=== PATIENT | female | born 1945 | race Caucasian/White ===

== ENCOUNTER → 2016-08-08 | Outpatient (CLI) | payer MEDICARE, BC | PROVIDERS: ATTEND Nurse Practitioner Family | DX: F34.1 Dysthymic disorder (principal); F41.0 Panic disorder [episodic paroxysmal anxiety] | CPT/HCPCS: 99214 ==

== ENCOUNTER 2019-05-15 10:46 | Day surgery (SDC) | payer MEDICARE, BC ==
[2019-05-15] MEDS ORDERED: Betamethasone Acetate/Betamethasone Sod Phosphate 30 MG/5 ML MDV EPIDUR ONE (12:00)
[2019-05-15] MEDS ORDERED: Lidocaine 2% 5 ML SDV INJECT ONE (12:00)
[2019-05-15] MEDS ORDERED: Ropivacaine 0.5% 5 MG/ML 30 ML SDV INJECT ONE (12:00)
[2019-05-15] MEDS ORDERED: diphenhydrAMINE 50 MG/ML SDV ONE (13:11)
[2019-05-15] MEDS ORDERED: diphenhydrAMINE 50 MG/ML SDV IVPUSH ONE (13:13)
[2019-05-15] MEDS ORDERED: Hydrocortisone Sodium Succinate 250 MG/2 ML SDV IV STA (13:13)
[2019-05-15] MEDS ORDERED: 50% Dextrose in Water 50 ML Syringe IVPUSH PRN (13:14)
[2019-05-15] MEDS ORDERED: Atropine 0.1 MG/ML 10 ML Syringe IVPUSH PRN ×2 (13:14)
[2019-05-15] MEDS ORDERED: EPINEPHrine 1:10,000 1 MG/10 ML Syringe IVPUSH PRN (13:14)
[2019-05-15] MEDS ORDERED: Albuterol 0.083% 2.5 MG/3 ML Neb Soln NEB PRN (13:14)
[2019-05-15] MEDS ORDERED: Naloxone 0.4 MG/ML Syringe IVPUSH PRN (13:14)
--- NOTE | 2019-05-15 13:21 | PCM.SN ---
- Free Text/Narrative Note: Called to PACU by RN for patient with difficultly swallowing. Patient has a reported anaphylactic reaction to contrast media. The patient received some form of contrast dye inadvertently during L4-L5-S1 Bilateral Facet injection. The patient reported increasing difficultly swallowing and was taken to PACU. Dr Tay is currently in another procedure and I was asked to evaluate the patient. Patient received Benedryl 5mg IV during the procedure. After consulting with Dr Gauthier Benadryl 25mg IV x1 and Hydrocortisone 100mg IV x 1 has been ordered. Will discuss with Dr Tay and let her know our interventions.
--- NOTE | 2019-05-15 20:05 | OR ---
SURGEON: Tania Tay D.O. DATE OF PROCEDURE: 05/15/2019 PRIMARY SURGEON: Tania Tay D.O. OPERATING ROOM STAFF PRESENT: 1. Tressa Gay RN. 2. Sanket Mathur RN. 3. RT Artem. 4. Zane Villalta RN. WOUND CLASS: I. PREOPERATIVE DIAGNOSES: 1. Lumbar facet arthropathy L45,L5-S1 Bilateral 2. Lumbar degenerative disk disease. 3. Chronic low back pain. POSTOPERATIVE DIAGNOSES: same PROCEDURES PERFORMED: 1. Right L4-L5 facet joint injection. 2. Right L5-S1 facet joint injection. 3. Left L4-L5 facet joint injection. 4. Left L5-S1 facet joint injection. 5. Fluoroscopic guidance for needle placement. 6. Local with oral Valium for sedation. SCREENING QUESTIONS: The patient answered "No" to all the following questions: 1. Are you allergic to iodine, Betadine or latex? 2. Do you have a bleeding disorder? 3. Are you on anti-inflammatories or blood thinners? 4. Do you have any current local or systemic infections? DESCRIPTION OF PROCEDURE: The patient had the procedure thoroughly explained including risks, benefits and alternatives. Consent was signed in my clinic indicating understanding and willingness to proceed. The patient presented to [facility] and was escorted to the dressing room to disrobe and change into a hospital gown. Preoperative history and screening were performed by my nurse. Vital signs were taken and stable. The patient reported that Valium 10 milligrams was taken prior to the procedure. The patient was brought back to the procedure room and placed in the prone position on the procedure room table. A pillow was placed under the abdomen in order to flatten the lumbar lordosis. The back was prepped with ChloraPrep and sterilely draped. All personnel in the procedure room were dressed in appropriate attire including surgical scrubs, head and shoe covers. This was to ensure sterility while in the treatment room. During the time fluoroscopy was in use all personnel in the operating room wore lead caro with thyroid collars. Sterile technique was used during the procedure. Then the fluoroscope was positioned to provide a right oblique view for the right L4-5 facet injection. This was begun by anesthetizing the skin and soft tissues. The fluoroscope was positioned and a sterile 22-gauge 3.5 inch needle was placed at the"eye of the carline dog". Precise needle placement was confirmed by fluoroscopy. After negative aspiration, 0.5 cubic centimeters of celestone and local was injected without complications.The fluoroscope was then positioned to provide a right L4-5 facet joint ingection as above. Then fluoroscope was positioned then to provide a left L5-S1 facet injection. Contrast dye was observed in above procedure on fluroscopy. Patient is allergic to contrast and pharmacy must have placed wrong medication in syringe. Immediately IV was started. Patient VSS. 5mg benadryl was give IVP. No issues and procedure for the L5-S1 facet joints were then continued as above without issues. The procedure was well tolerated and vital signs were stable during and after the procedure. The staff escorted the patient to the recovery area PACU for observation. Incidental IV contrast dye noted. IV was started in the OR as the pharmacy mislabeled IV Isovue contrast dye for ropivacaine. I noticed that the ropivacaine was contrast under fluoroscopy and immediately started an IV as the patient is allergic to the IV contrast. 5 mg of IV Benadryl were given and the patient was brought to the recovery room to monitor. After a brief stay in the recovery room, she felt she developed some difficulty swallowing and an additional 25 mg of Benadryl was given and 100 mg of Solu-Medrol. She was monitored in the recovery room and discharged to step down when stable. She had full recovery and was discharged to home with instuctions to f/u in ER if any unusual swelling, pain or weakness. PREOPERATIVE PAIN: 6. POSTOPERATIVE PAIN: 1. HOGLCHR / MODL /[id number] SANDRINE
== END 2019-05-15 14:45 | disposition home or self-care (01) ==
LOC: MW.SDS 10:46
PROVIDERS: ATTEND Anesthesiology
DX: G89.29 Other chronic pain (principal); M47.817 Spondylosis without myelopathy or radiculopathy, lumbosacral region; M47.816 Spondylosis without myelopathy or radiculopathy, lumbar region; M51.36 Other intervertebral disc degeneration, lumbar region
CPT/HCPCS: 64493; 64494; J0702; J1200; J1720; J2795

== ENCOUNTER 2021-07-05 13:23 | Emergency (ER) | payer MEDICARE, BC ==
[2021-07-05] MEDS ORDERED: diphenhydrAMINE 50 MG/ML SDV IVPUSH ONE ×2 (13:42→14:24)
[2021-07-05 15:39] LABS: BLOOD UREA NITROGEN,BUN 24 mg/dL (7.0-18.0); CARBON DIOXIDE,CO2 31.1 mmol/L (21.0-32.0); CHLORIDE,CL 100 mmol/L (98-107); GLUCOSE RANDOM 112 mg/dL (74-106); POTASSIUM,K 3.7 mmol/L (3.5-5.1); SODIUM,NA 137 mmol/L (136-145)
[2021-07-05] MEDS ORDERED: LORazepam 2 MG/ML SDV IVPUSH ONE (15:45)
== END 2021-07-05 17:41 | disposition home or self-care (01) ==
LOC: MW.ED 13:23
DX: G25.71 Drug induced akathisia (principal); I10 Essential (primary) hypertension; K21.9 Gastro-esophageal reflux disease without esophagitis; Z91.041 Radiographic dye allergy status; Z88.8 Allergy status to other drugs, medicaments and biological substances; Z88.1 Allergy status to other antibiotic agents; Z79.82 Long term (current) use of aspirin; Z79.899 Other long term (current) drug therapy
CPT/HCPCS: 36415; 80053; 83735; 85025; 96374; 96375; 96376; 99284; J1200; J2060

== ENCOUNTER 2021-07-07 13:29 | Emergency (ER) | payer MEDICARE, BC ==
[2021-07-07] MEDS ORDERED: Sodium Chloride 0.9% 2.5 ML Syringe FLUSH PRN (14:01)
[2021-07-07] MEDS ORDERED: Sodium Chloride 0.9% 10 ML Syringe FLUSH PRN (14:01)
[2021-07-07] MEDS ORDERED: LORazepam 2 MG/ML SDV IVPUSH ONE (14:03)
[2021-07-07 15:10] LABS: BLOOD UREA NITROGEN,BUN 23 mg/dL (7.0-18.0); CARBON DIOXIDE,CO2 30.9 mmol/L (21.0-32.0); CHLORIDE,CL 102 mmol/L (98-107); GLUCOSE RANDOM 93 mg/dL (74-106); POTASSIUM,K 3.6 mmol/L (3.5-5.1); SODIUM,NA 139 mmol/L (136-145)
[2021-07-07] MEDS ORDERED: LORazepam 1 MG Tab PO ONE (17:52)
== END 2021-07-07 18:32 | disposition home or self-care (01) ==
LOC: MW.ED 13:29
DX: F28 Other psychotic disorder not due to a substance or known physiological condition (principal); R45.1 Restlessness and agitation; M19.90 Unspecified osteoarthritis, unspecified site; K21.9 Gastro-esophageal reflux disease without esophagitis; F41.9 Anxiety disorder, unspecified; F32.A Depression, unspecified; E03.9 Hypothyroidism, unspecified; Z86.73 Personal history of transient ischemic attack (TIA), and cerebral infarction without residual deficits; Z88.2 Allergy status to sulfonamides; Z91.041 Radiographic dye allergy status; Z88.1 Allergy status to other antibiotic agents
CPT/HCPCS: 36415; 70450; 80053; 81001; 82550; 85025; 96374; 99284; A9270; J2060; 99283

== ENCOUNTER 2022-05-16 16:22 | Inpatient (IN) | payer MEDICARE, BC ==
[2022-05-16] MEDS ORDERED: Morphine 2 MG/ML SYRINGE ONE (16:37)
[2022-05-16] MEDS ORDERED: Morphine 2 MG/ML SYRINGE IVPUSH ONE ×2 (16:38→18:14)
[2022-05-16 17:10] LABS: CARBON DIOXIDE,CO2 28.9 mmol/L (21.0-32.0)
[2022-05-16 18:31] LABS: CORONAVIRUS COVID-19 NAA NEGATIVE (NEGATIVE); INFLUENZA A NAA NEGATIVE (NEGATIVE); INFLUENZA B NAA NEGATIVE (NEGATIVE)
[2022-05-16] MEDS: Melatonin 3 MG Tab PO PRN (23:31)
[2022-05-16] MEDS: Morphine 2 MG/ML SYRINGE IVPUSH PRN (23:32)
[2022-05-17] MEDS: Morphine 2 MG/ML SYRINGE IVPUSH PRN ×4 (03:40→23:05)
[2022-05-17] MEDS ORDERED: Ondansetron 4 MG/2 ML SDV IVPUSH PRN ×2 (07:58→11:22)
[2022-05-17] MEDS ORDERED: Sodium Chloride 0.9% 2.5 ML Syringe FLUSH PRN (07:58)
[2022-05-17] MEDS ORDERED: Docusate Sodium 100 MG Cap PO PRN (07:58)
[2022-05-17] MEDS ORDERED: Sodium Chloride 0.9% 10 ML Syringe FLUSH PRN (07:58)
[2022-05-17] MEDS ORDERED: Acetaminophen 325 MG Tab PO PRN (07:58)
[2022-05-17] MEDS: Lactated Ringers 1,000 ML IV SCH ×2 (08:39→23:11)
[2022-05-17] MEDS: ClonazePAM 1 MG Tab PO SCH ×2 (09:38→20:57)
[2022-05-17] MEDS ORDERED: Polyethylene Glycol 3350 Powder 17 GM Packet PO PRN (11:13)
[2022-05-17] MEDS ORDERED: HYDROmorphone 1 MG/ML Syringe IVPUSH PRN (11:22)
[2022-05-17] MEDS ORDERED: Naloxone 0.4 MG/ML SDV IVPUSH PRN (11:22)
[2022-05-17] MEDS ORDERED: Morphine 2 MG/ML SYRINGE IVPUSH PRN (11:22)
[2022-05-17] MEDS ORDERED: Albuterol 0.083% 2.5 MG/3 ML Neb Soln NEB PRN (11:22)
[2022-05-17] MEDS ORDERED: fentaNYL 50 MCG/ML SDV IVPUSH PRN (11:22)
[2022-05-17] MEDS ORDERED: Metoclopramide 10 MG/2 ML SDV IVPUSH PRN (11:22)
[2022-05-17] MEDS ORDERED: hydrOXYzine Pamoate 25 MG Cap PO PRN (12:00)
[2022-05-17] MEDS ORDERED: Ondansetron 4 MG/2 ML SDV ONE (15:52)
[2022-05-17] MEDS ORDERED: Dexmedetomidine 200 MCG/2 ML SDV ONE (15:52)
[2022-05-17] MEDS ORDERED: fentaNYL 100 MCG/2 ML SDV ONE (15:53)
[2022-05-17] MEDS ORDERED: ePHEDrine 50 MG/ML SDV ONE ×2 (16:38→18:43)
[2022-05-17] MEDS ORDERED: ceFAZolin 1 GM Vial ONE (16:42)
[2022-05-17] MEDS ORDERED: propofoL 100 ML ONE (17:41)
[2022-05-17] MEDS ORDERED: DEXTROAMPHETAMINE PO SCH (18:00)
[2022-05-17] MEDS ORDERED: AMPHETAMINE PO SCH (18:00)
[2022-05-17] MEDS ORDERED: Bisacodyl 10 MG Supp RECTAL PRN (18:04)
[2022-05-17] MEDS ORDERED: diphenhydrAMINE 25 MG Cap PO PRN (18:04)
[2022-05-17] MEDS ORDERED: traMADol 50 MG Tab PO PRN (18:04)
[2022-05-17] MEDS: Gabapentin 300 MG Cap PO SCH (20:54)
[2022-05-17] MEDS: Famotidine 20 MG Tab PO SCH (20:55)
[2022-05-17] MEDS: Acetaminophen 325 MG Tab PO SCH (20:55)
[2022-05-17] MEDS: Propranolol 20 MG Tab PO SCH (20:56)
[2022-05-17] MEDS: busPIRone 5 MG Tab PO SCH (20:56)
[2022-05-17] MEDS: Melatonin 3 MG Tab PO PRN (23:19)
[2022-05-17] MEDS: ceFAZolin 1 GM in Premix Bag 1 BAG IV SCH (23:51)
[2022-05-18] MEDS: Acetaminophen 325 MG Tab PO SCH ×6 (00:47→21:57)
[2022-05-18] MEDS ORDERED: Norepinephrine Bit/D5W Premix 250 ML ONE (01:39)
[2022-05-18] MEDS: Lactated Ringers 1,000 ML IV SCH (04:41)
[2022-05-18] MEDS: Levothyroxine 25 MCG Tab PO SCH ×2 (06:21→06:34)
[2022-05-18 06:37] LABS: CARBON DIOXIDE,CO2 30.1 mmol/L (21.0-32.0); POTASSIUM,K 4.1 mmol/L (3.5-5.1)
[2022-05-18] MEDS: FLUoxetine 20 MG Cap PO SCH (08:49)
[2022-05-18] MEDS: Propranolol 20 MG Tab PO SCH ×2 (08:50→21:57)
[2022-05-18] MEDS: Famotidine 20 MG Tab PO SCH ×2 (08:51→21:57)
[2022-05-18] MEDS: Calcium Carbonate/Vitamin D3 1500 MG-400 Units Tab PO SCH (08:51)
[2022-05-18] MEDS: ClonazePAM 1 MG Tab PO SCH ×2 (08:52→21:57)
[2022-05-18] MEDS: Aspirin 325 MG Tab PO SCH (08:52)
[2022-05-18] MEDS: AMPHETAMINE PO SCH ×2 (08:53→13:04)
[2022-05-18] MEDS: DEXTROAMPHETAMINE PO SCH ×2 (08:53→13:04)
[2022-05-18] MEDS: ceFAZolin 1 GM in Premix Bag 1 BAG IV SCH (08:54)
[2022-05-18] MEDS: oxyCODONE 5 MG Tab PO PRN (09:11)
[2022-05-18] MEDS: busPIRone 5 MG Tab PO SCH ×2 (10:42→21:56)
[2022-05-18] MEDS: Docusate Sodium 100 MG Cap PO SCH ×2 (10:56→21:57)
[2022-05-18] MEDS: Gabapentin 300 MG Cap PO SCH ×2 (11:01→21:58)
[2022-05-18] MEDS: Cefadroxil 500 MG Cap PO SCH (22:42)
[2022-05-19] MEDS: Acetaminophen 325 MG Tab PO SCH ×6 (01:37→20:55)
[2022-05-19] MEDS: Levothyroxine 25 MCG Tab PO SCH (06:38)
[2022-05-19 08:07] LABS: CARBON DIOXIDE,CO2 28.8 mmol/L (21.0-32.0)
[2022-05-19] MEDS: Calcium Carbonate/Vitamin D3 1500 MG-400 Units Tab PO SCH (08:45)
[2022-05-19] MEDS: Famotidine 20 MG Tab PO SCH ×2 (08:45→20:55)
[2022-05-19] MEDS: Aspirin 325 MG Tab PO SCH (08:45)
[2022-05-19] MEDS: Docusate Sodium 100 MG Cap PO SCH ×2 (08:45→20:55)
[2022-05-19] MEDS ORDERED: Sodium Chloride 0.9% 500 ML IV SCH (08:45)
[2022-05-19] MEDS: FLUoxetine 20 MG Cap PO SCH (08:47)
[2022-05-19] MEDS: busPIRone 5 MG Tab PO SCH ×2 (08:47→20:57)
[2022-05-19] MEDS: DEXTROAMPHETAMINE PO SCH ×2 (08:48→12:50)
[2022-05-19] MEDS: AMPHETAMINE PO SCH ×2 (08:48→12:50)
[2022-05-19] MEDS: ClonazePAM 1 MG Tab PO SCH ×2 (08:49→20:55)
[2022-05-19] MEDS: oxyCODONE 5 MG Tab PO PRN (10:11)
[2022-05-19] MEDS: Propranolol 20 MG Tab PO SCH ×2 (10:11→20:56)
[2022-05-19] MEDS: Cefadroxil 500 MG Cap PO SCH ×2 (10:25→20:56)
[2022-05-19] MEDS: Gabapentin 300 MG Cap PO SCH ×2 (12:50→20:56)
[2022-05-19] MEDS: Morphine 2 MG/ML SYRINGE IVPUSH PRN (14:27)
[2022-05-20] MEDS: Acetaminophen 325 MG Tab PO SCH ×6 (00:52→21:05)
[2022-05-20] MEDS: oxyCODONE 5 MG Tab PO PRN ×3 (00:53→23:43)
[2022-05-20 06:20] LABS: CARBON DIOXIDE,CO2 28.2 mmol/L (21.0-32.0); POTASSIUM,K 3.8 mmol/L (3.5-5.1)
[2022-05-20] MEDS: Levothyroxine 25 MCG Tab PO SCH (06:32)
[2022-05-20] MEDS: FLUoxetine 20 MG Cap PO SCH (08:43)
[2022-05-20] MEDS: Calcium Carbonate/Vitamin D3 1500 MG-400 Units Tab PO SCH (08:43)
[2022-05-20] MEDS: Cefadroxil 500 MG Cap PO SCH ×2 (08:43→21:04)
[2022-05-20] MEDS: Aspirin 325 MG Tab PO SCH (08:43)
[2022-05-20] MEDS: Propranolol 20 MG Tab PO SCH ×2 (08:43→21:04)
[2022-05-20] MEDS: Famotidine 20 MG Tab PO SCH ×2 (08:43→21:06)
[2022-05-20] MEDS: Docusate Sodium 100 MG Cap PO SCH ×2 (08:43→21:04)
[2022-05-20] MEDS: ClonazePAM 1 MG Tab PO SCH ×2 (08:44→21:06)
[2022-05-20] MEDS: busPIRone 5 MG Tab PO SCH ×2 (08:44→21:38)
[2022-05-20] MEDS: DEXTROAMPHETAMINE PO SCH ×2 (08:44→12:52)
[2022-05-20] MEDS: AMPHETAMINE PO SCH ×2 (08:44→12:52)
[2022-05-20] MEDS: Gabapentin 300 MG Cap PO SCH ×2 (12:51→21:04)
[2022-05-21] MEDS: Acetaminophen 325 MG Tab PO SCH ×6 (01:54→20:12)
[2022-05-21 05:56] LABS: POTASSIUM,K 3.6 mmol/L (3.5-5.1)
[2022-05-21] MEDS: Levothyroxine 25 MCG Tab PO SCH ×2 (06:00→06:37)
[2022-05-21] MEDS: Docusate Sodium 100 MG Cap PO SCH ×2 (09:03→20:22)
[2022-05-21] MEDS: FLUoxetine 20 MG Cap PO SCH (09:03)
[2022-05-21] MEDS: Aspirin 325 MG Tab PO SCH (09:03)
[2022-05-21] MEDS: ClonazePAM 1 MG Tab PO SCH ×2 (09:04→20:13)
[2022-05-21] MEDS: Propranolol 20 MG Tab PO SCH ×2 (09:04→20:14)
[2022-05-21] MEDS: Famotidine 20 MG Tab PO SCH ×2 (09:04→20:14)
[2022-05-21] MEDS: Calcium Carbonate/Vitamin D3 1500 MG-400 Units Tab PO SCH (09:04)
[2022-05-21] MEDS: DEXTROAMPHETAMINE PO SCH ×2 (09:04→12:20)
[2022-05-21] MEDS: AMPHETAMINE PO SCH ×2 (09:04→12:20)
[2022-05-21] MEDS: Cefadroxil 500 MG Cap PO SCH ×2 (09:14→20:13)
[2022-05-21] MEDS: busPIRone 5 MG Tab PO SCH ×2 (10:11→20:13)
[2022-05-21] MEDS: Gabapentin 300 MG Cap PO SCH ×2 (12:20→20:13)
[2022-05-21] MEDS: Morphine 2 MG/ML SYRINGE IVPUSH PRN (18:51)
[2022-05-21] MEDS: oxyCODONE 5 MG Tab PO PRN (20:14)
[2022-05-22] MEDS: Acetaminophen 325 MG Tab PO SCH ×6 (02:15→20:18)
[2022-05-22] MEDS: Levothyroxine 25 MCG Tab PO SCH (06:30)
[2022-05-22 06:40] LABS: CARBON DIOXIDE,CO2 29.1 mmol/L (21.0-32.0); POTASSIUM,K 2.9 mmol/L (3.5-5.1)
[2022-05-22] MEDS: Famotidine 20 MG Tab PO SCH ×2 (08:00→20:19)
[2022-05-22] MEDS: Calcium Carbonate/Vitamin D3 1500 MG-400 Units Tab PO SCH (08:00)
[2022-05-22] MEDS: busPIRone 5 MG Tab PO SCH ×2 (08:00→20:17)
[2022-05-22] MEDS: ClonazePAM 1 MG Tab PO SCH ×2 (08:00→20:19)
[2022-05-22] MEDS: FLUoxetine 20 MG Cap PO SCH (08:00)
[2022-05-22] MEDS: Docusate Sodium 100 MG Cap PO SCH ×2 (08:02→20:20)
[2022-05-22] MEDS: Propranolol 20 MG Tab PO SCH ×2 (08:02→20:19)
[2022-05-22] MEDS: Aspirin 325 MG Tab PO SCH (08:02)
[2022-05-22] MEDS: AMPHETAMINE PO SCH ×2 (08:05→12:31)
[2022-05-22] MEDS: DEXTROAMPHETAMINE PO SCH ×2 (08:05→12:31)
[2022-05-22] MEDS: Potassium Chloride 20 MEQ Tab.ER PO SCH ×2 (09:14→12:28)
[2022-05-22] MEDS: oxyCODONE 5 MG Tab PO PRN ×3 (09:14→23:12)
[2022-05-22] MEDS: Cefadroxil 500 MG Cap PO SCH ×2 (09:14→20:19)
[2022-05-22] MEDS: Gabapentin 300 MG Cap PO SCH ×2 (12:28→20:18)
[2022-05-23] MEDS: Acetaminophen 325 MG Tab PO SCH ×6 (02:16→20:12)
[2022-05-23 06:00] LABS: CARBON DIOXIDE,CO2 28.1 mmol/L (21.0-32.0); POTASSIUM,K 3.6 mmol/L (3.5-5.1)
[2022-05-23] MEDS: Levothyroxine 25 MCG Tab PO SCH ×2 (06:09→06:45)
[2022-05-23] MEDS: DEXTROAMPHETAMINE PO SCH ×2 (08:21→11:57)
[2022-05-23] MEDS: AMPHETAMINE PO SCH ×2 (08:21→11:57)
[2022-05-23] MEDS: FLUoxetine 20 MG Cap PO SCH (08:23)
[2022-05-23] MEDS: busPIRone 5 MG Tab PO SCH ×2 (08:27→20:22)
[2022-05-23] MEDS: Propranolol 20 MG Tab PO SCH ×2 (08:30→20:12)
[2022-05-23] MEDS: Docusate Sodium 100 MG Cap PO SCH ×2 (08:31→20:11)
[2022-05-23] MEDS: Famotidine 20 MG Tab PO SCH ×2 (08:31→20:12)
[2022-05-23] MEDS: ClonazePAM 1 MG Tab PO SCH ×2 (08:32→20:11)
[2022-05-23] MEDS: Calcium Carbonate/Vitamin D3 1500 MG-400 Units Tab PO SCH (08:32)
[2022-05-23] MEDS: Cefadroxil 500 MG Cap PO SCH ×2 (08:33→20:11)
[2022-05-23] MEDS: Aspirin 325 MG Tab PO SCH (08:34)
[2022-05-23] MEDS: oxyCODONE 5 MG Tab PO PRN ×2 (08:53→15:12)
[2022-05-23] MEDS: Polyethylene Glycol 3350 Powder 17 GM Packet PO PRN (08:57)
[2022-05-23] MEDS: Gabapentin 300 MG Cap PO SCH ×2 (11:56→20:13)
[2022-05-24] MEDS: Acetaminophen 325 MG Tab PO SCH ×6 (01:21→21:10)
[2022-05-24] MEDS: oxyCODONE 5 MG Tab PO PRN ×2 (06:00→22:25)
[2022-05-24] MEDS: Levothyroxine 25 MCG Tab PO SCH ×2 (06:01→06:54)
[2022-05-24 06:16] LABS: POTASSIUM,K 4.4 mmol/L (3.5-5.1)
[2022-05-24] MEDS: Aspirin 325 MG Tab PO SCH (08:50)
[2022-05-24] MEDS: FLUoxetine 20 MG Cap PO SCH (08:50)
[2022-05-24] MEDS: Propranolol 20 MG Tab PO SCH ×2 (08:51→21:10)
[2022-05-24] MEDS: Cefadroxil 500 MG Cap PO SCH ×2 (08:52→21:11)
[2022-05-24] MEDS: ClonazePAM 1 MG Tab PO SCH ×2 (08:52→21:10)
[2022-05-24] MEDS: Calcium Carbonate/Vitamin D3 1500 MG-400 Units Tab PO SCH (08:52)
[2022-05-24] MEDS: Famotidine 20 MG Tab PO SCH ×2 (08:52→21:11)
[2022-05-24] MEDS: Docusate Sodium 100 MG Cap PO SCH ×2 (08:53→21:13)
[2022-05-24] MEDS: busPIRone 5 MG Tab PO SCH ×2 (09:31→21:12)
[2022-05-24] MEDS: DEXTROAMPHETAMINE PO SCH ×2 (09:34→12:52)
[2022-05-24] MEDS: AMPHETAMINE PO SCH ×2 (09:34→12:52)
[2022-05-24] MEDS: Gabapentin 300 MG Cap PO SCH ×2 (12:53→21:11)
[2022-05-25] MEDS: Acetaminophen 325 MG Tab PO SCH ×6 (00:51→20:30)
[2022-05-25] MEDS: oxyCODONE 5 MG Tab PO PRN ×3 (06:10→18:36)
[2022-05-25] MEDS: Levothyroxine 25 MCG Tab PO SCH ×2 (06:11→06:34)
[2022-05-25 06:16] LABS: CARBON DIOXIDE,CO2 28.9 mmol/L (21.0-32.0); POTASSIUM,K 3.3 mmol/L (3.5-5.1)
[2022-05-25] MEDS ORDERED: Potassium Chloride 20 MEQ Tab.ER PO ONE (07:52)
[2022-05-25] MEDS: Aspirin 325 MG Tab PO SCH (08:28)
[2022-05-25] MEDS: Calcium Carbonate/Vitamin D3 1500 MG-400 Units Tab PO SCH (08:29)
[2022-05-25] MEDS: Docusate Sodium 100 MG Cap PO SCH ×2 (08:30→20:31)
[2022-05-25] MEDS: Propranolol 20 MG Tab PO SCH ×2 (08:30→20:30)
[2022-05-25] MEDS: ClonazePAM 1 MG Tab PO SCH ×2 (08:31→20:30)
[2022-05-25] MEDS: Famotidine 20 MG Tab PO SCH ×2 (08:31→20:31)
[2022-05-25] MEDS: FLUoxetine 20 MG Cap PO SCH (08:32)
[2022-05-25] MEDS: Cefadroxil 500 MG Cap PO SCH (08:34)
[2022-05-25] MEDS: DEXTROAMPHETAMINE PO SCH ×2 (08:38→11:24)
[2022-05-25] MEDS: AMPHETAMINE PO SCH ×2 (08:38→11:24)
[2022-05-25] MEDS: busPIRone 5 MG Tab PO SCH ×2 (09:31→20:30)
[2022-05-25] MEDS: Gabapentin 300 MG Cap PO SCH ×2 (11:23→20:30)
[2022-05-25] MEDS: Polyethylene Glycol 3350 Powder 17 GM Packet PO PRN (11:24)
[2022-05-26] MEDS: Acetaminophen 325 MG Tab PO SCH ×7 (01:05→20:26)
[2022-05-26] MEDS: oxyCODONE 5 MG Tab PO PRN ×3 (03:43→20:29)
[2022-05-26] MEDS: Levothyroxine 25 MCG Tab PO SCH ×2 (06:12→06:30)
[2022-05-26 06:17] LABS: CARBON DIOXIDE,CO2 28.1 mmol/L (21.0-32.0); POTASSIUM,K 3.7 mmol/L (3.5-5.1)
[2022-05-26] MEDS: Aspirin 325 MG Tab PO SCH (08:10)
[2022-05-26] MEDS: busPIRone 5 MG Tab PO SCH ×2 (08:10→20:25)
[2022-05-26] MEDS: Famotidine 20 MG Tab PO SCH ×2 (08:11→20:28)
[2022-05-26] MEDS: Propranolol 20 MG Tab PO SCH ×2 (08:13→20:26)
[2022-05-26] MEDS: FLUoxetine 20 MG Cap PO SCH (08:14)
[2022-05-26] MEDS: Calcium Carbonate/Vitamin D3 1500 MG-400 Units Tab PO SCH (08:15)
[2022-05-26] MEDS: Docusate Sodium 100 MG Cap PO SCH ×2 (08:15→20:26)
[2022-05-26] MEDS: ClonazePAM 1 MG Tab PO SCH ×2 (08:15→20:28)
[2022-05-26] MEDS: DEXTROAMPHETAMINE PO SCH ×2 (08:22→11:28)
[2022-05-26] MEDS: AMPHETAMINE PO SCH ×2 (08:22→11:28)
[2022-05-26] MEDS: Polyethylene Glycol 3350 Powder 17 GM Packet PO PRN (08:31)
[2022-05-26] MEDS: Gabapentin 300 MG Cap PO SCH ×2 (11:28→20:26)
[2022-05-27] MEDS: Acetaminophen 325 MG Tab PO SCH ×6 (02:47→20:00)
[2022-05-27] MEDS: oxyCODONE 5 MG Tab PO PRN ×2 (03:19→19:59)
[2022-05-27] MEDS: Levothyroxine 25 MCG Tab PO SCH (06:33)
[2022-05-27] MEDS: Famotidine 20 MG Tab PO SCH ×2 (08:24→20:01)
[2022-05-27] MEDS: DEXTROAMPHETAMINE PO SCH ×2 (08:24→12:01)
[2022-05-27] MEDS: FLUoxetine 20 MG Cap PO SCH (08:24)
[2022-05-27] MEDS: AMPHETAMINE PO SCH ×2 (08:24→12:01)
[2022-05-27] MEDS: ClonazePAM 1 MG Tab PO SCH ×2 (08:24→20:00)
[2022-05-27] MEDS: Aspirin 325 MG Tab PO SCH (08:24)
[2022-05-27] MEDS: Propranolol 20 MG Tab PO SCH ×2 (08:24→20:01)
[2022-05-27] MEDS: Docusate Sodium 100 MG Cap PO SCH ×2 (08:25→20:01)
[2022-05-27] MEDS: Calcium Carbonate/Vitamin D3 1500 MG-400 Units Tab PO SCH (08:25)
[2022-05-27] MEDS: busPIRone 5 MG Tab PO SCH ×2 (09:28→20:00)
[2022-05-27] MEDS: Gabapentin 300 MG Cap PO SCH ×2 (12:01→20:01)
[2022-05-27] MEDS: Aluminum Hydroxide/Magnesium Hydroxide/Simethicone XS Susp 30 ML Cup PO PRN ×2 (13:08→17:34)
[2022-05-28] MEDS: Acetaminophen 325 MG Tab PO SCH ×6 (02:32→20:58)
[2022-05-28] MEDS: Levothyroxine 25 MCG Tab PO SCH (06:31)
[2022-05-28] MEDS: Famotidine 20 MG Tab PO SCH ×2 (07:59→20:57)
[2022-05-28] MEDS: busPIRone 5 MG Tab PO SCH ×2 (07:59→20:55)
[2022-05-28] MEDS: Docusate Sodium 100 MG Cap PO SCH ×3 (07:59→20:56)
[2022-05-28] MEDS: Calcium Carbonate/Vitamin D3 1500 MG-400 Units Tab PO SCH (07:59)
[2022-05-28] MEDS: Aspirin 325 MG Tab PO SCH (07:59)
[2022-05-28] MEDS: FLUoxetine 20 MG Cap PO SCH (07:59)
[2022-05-28] MEDS: ClonazePAM 1 MG Tab PO SCH ×2 (07:59→20:56)
[2022-05-28] MEDS: Propranolol 20 MG Tab PO SCH ×2 (08:00→20:56)
[2022-05-28] MEDS: AMPHETAMINE PO SCH ×2 (08:31→12:03)
[2022-05-28] MEDS: DEXTROAMPHETAMINE PO SCH ×2 (08:31→12:03)
[2022-05-28] MEDS: Gabapentin 300 MG Cap PO SCH ×2 (12:03→20:57)
[2022-05-28] MEDS: Aluminum Hydroxide/Magnesium Hydroxide/Simethicone XS Susp 30 ML Cup PO PRN (12:06)
[2022-05-28] MEDS: oxyCODONE 5 MG Tab PO PRN ×2 (13:14→18:45)
[2022-05-28] MEDS: Morphine 2 MG/ML SYRINGE IVPUSH PRN (23:32)
[2022-05-29] MEDS: Acetaminophen 325 MG Tab PO SCH ×3 (01:50→08:01)
[2022-05-29] MEDS: oxyCODONE 5 MG Tab PO PRN (05:11)
[2022-05-29] MEDS: Levothyroxine 25 MCG Tab PO SCH (06:34)
[2022-05-29] MEDS: Aspirin 325 MG Tab PO SCH (08:00)
[2022-05-29] MEDS: Calcium Carbonate/Vitamin D3 1500 MG-400 Units Tab PO SCH (08:00)
[2022-05-29] MEDS: busPIRone 5 MG Tab PO SCH (08:00)
[2022-05-29] MEDS: Propranolol 20 MG Tab PO SCH (08:00)
[2022-05-29] MEDS: FLUoxetine 20 MG Cap PO SCH (08:00)
[2022-05-29] MEDS: Famotidine 20 MG Tab PO SCH (08:01)
[2022-05-29] MEDS: DEXTROAMPHETAMINE PO SCH (08:01)
[2022-05-29] MEDS: AMPHETAMINE PO SCH (08:01)
[2022-05-29] MEDS: ClonazePAM 1 MG Tab PO SCH (08:01)
[2022-05-29] MEDS: Docusate Sodium 100 MG Cap PO SCH (08:05)
== END 2022-05-29 11:00 | disposition home health service (06) | DRG 481 ==
LOC: MW.ED 16:22 → MW.MS 18:50
PROVIDERS: ADMIT Hospitalist; ATTEND Internal Medicine
PROC: 0QS736Z Reposition Left Upper Femur with Intramedullary Internal Fixation Device, Percutaneous Approach (ICD-10-PCS; principal; 2022-05-17)
DX: S72.142A Displaced intertrochanteric fracture of left femur, initial encounter for closed fracture (principal); C34.92 Malignant neoplasm of unspecified part of left bronchus or lung; E44.1 Mild protein-calorie malnutrition; D50.8 Other iron deficiency anemias; K31.84 Gastroparesis; G25.81 Restless legs syndrome; M79.7 Fibromyalgia; E03.9 Hypothyroidism, unspecified; Z79.82 Long term (current) use of aspirin; Z79.899 Other long term (current) drug therapy; K21.9 Gastro-esophageal reflux disease without esophagitis; Z85.118 Personal history of other malignant neoplasm of bronchus and lung; W01.0XXA Fall on same level from slipping, tripping and stumbling without subsequent striking against object, initial encounter; Z20.822 Contact with and (suspected) exposure to COVID-19; E03.2 Hypothyroidism due to medicaments and other exogenous substances; K44.9 Diaphragmatic hernia without obstruction or gangrene; F32.A Depression, unspecified; I10 Essential (primary) hypertension; F41.9 Anxiety disorder, unspecified; K22.70 Barrett's esophagus without dysplasia; R26.9 Unspecified abnormalities of gait and mobility; Z90.2 Acquired absence of lung [part of]; Z98.890 Other specified postprocedural states; Z86.73 Personal history of transient ischemic attack (TIA), and cerebral infarction without residual deficits; Z68.22 Body mass index [BMI] 22.0-22.9, adult; Z90.49 Acquired absence of other specified parts of digestive tract; Z90.710 Acquired absence of both cervix and uterus; Z88.2 Allergy status to sulfonamides; Z91.041 Radiographic dye allergy status; Z88.1 Allergy status to other antibiotic agents; W19.XXXA Unspecified fall, initial encounter
CPT/HCPCS: 0240U; 36415; 70450; 72128; 72131; 72192; 73502; 76000; 80048; 80053; 81001; 82947; 83735; 85014; 85018; 85025; 87086; 96374; 96376; 97110; 97116; 97163; 97165; 97530; 99285; 01210; 99100; 99283; A9270-GY; C1713; C1776; J0131; J0690; J2270; J2405; J2704; J3010; J3490; J7040; J7120